=== PATIENT | female | born 1975 | race Two or more races ===

== ENCOUNTER 2017-08-09 10:02 | Outpatient (CLI) | payer OTHER ==
[~2017-08-09 10:02] MED LIST: ALTACE10 MG PO; ORPH100T PO; ULTRACET PO; ULTRAM50 MG PO
== END 2017-08-09 10:04 | disposition home or self-care (01) ==
LOC: RAD 10:02
DX: M12.9 Arthropathy, unspecified (principal); M19.90 Unspecified osteoarthritis, unspecified site

== ENCOUNTER 2017-11-12 10:17 | Outpatient (CLI) | payer OTHER | END 2017-11-12 20:51 | disposition home or self-care (01) | LOC: OBS/DEL 10:17 | DX: O43.892 Other placental disorders, second trimester (principal); O60.02 Preterm labor without delivery, second trimester; Z34.82 Encounter for supervision of other normal pregnancy, second trimester ==

== ENCOUNTER 2017-11-16 14:52 | Inpatient (IN) | payer OTHER ==
[~2017-11-16] VITALS: Ht 165.1 cm; Wt 118.8 kg
[2017-11-16] MEDS ORDERED: PRENATAL TABLE1 EAC1 PO (16:27)
[2017-11-16] MEDS ORDERED: ALDOMET500 MG PO (16:28)
[2017-11-16] MEDS ORDERED: VITAMIN D2400 UNIT PO (16:29)
[2017-11-16] MEDS ORDERED: NIFE60TA3 PO (16:30)
[2017-11-19] MEDS ORDERED: HYDROXYZINE PAM50 MG PO (12:11)
== END 2017-11-19 15:04 | DRG 781 ==
LOC: LDR 14:52 → OB/GYN 11-18 07:21
PROC: BY4CZZZ Ultrasonography of Second Trimester, Single Fetus (ICD-10-PCS; principal; 2017-11-16)
PROC: 4A1HXCZ Monitoring of Products of Conception, Cardiac Rate, External Approach (ICD-10-PCS; 2017-11-16)
DX: O14.02 Mild to moderate pre-eclampsia, second trimester (principal)

== ENCOUNTER 2018-02-07 10:12 | Inpatient (IN) | payer OTHER ==
[~2018-02-07] VITALS: Ht 165.1 cm; Wt 127.0 kg
[~2018-02-07 10:12] MED LIST changes: +ALDOMET500 MG PO; +HYDROXYZINE PAM50 MG PO; +NIFE60TA3 PO; +PRENATAL TABLE1 EAC1 PO; +VITAMIN D2400 UNIT PO
[2018-02-07] MEDS ORDERED: ALDOMET500 MG PO (11:26)
[2018-02-07] MEDS ORDERED: OBSTETRIX EC C1 EACH PO (11:27)
[2018-02-07] MEDS ORDERED: VITAMIN B COMP1 EACH PO (11:27)
== END 2018-02-10 09:54 | DRG 782 ==
LOC: LDR 10:12 → OB/GYN 02-08 11:44
PROC: BY4FZZZ Ultrasonography of Third Trimester, Single Fetus (ICD-10-PCS; principal; 2018-02-07)
PROC: 4A1HXCZ Monitoring of Products of Conception, Cardiac Rate, External Approach (ICD-10-PCS; 2018-02-07)
DX: O13.3 Gestational [pregnancy-induced] hypertension without significant proteinuria, third trimester (principal); O47.03 False labor before 37 completed weeks of gestation, third trimester; O09.523 Supervision of elderly multigravida, third trimester

== ENCOUNTER 2018-02-20 12:31 | Inpatient (IN) | payer OTHER ==
[~2018-02-20] VITALS: Ht 165.1 cm; Wt 3.6 kg
[~2018-02-20 12:31] MED LIST changes: +OBSTETRIX EC C1 EACH PO; +VITAMIN B COMP1 EACH PO
[2018-02-20] MEDS ORDERED: RETASIS (13:05)
[2018-02-20] MEDS ORDERED: PATANOL5 ML OP (13:06)
== END 2018-03-01 12:41 | disposition home or self-care (01) | DRG 766 ==
LOC: LDR 02-26 12:25 → OB/GYN 02-26 20:42 → SURH 03-08 12:29
PROC: 10D00Z1 Extraction of Products of Conception, Low, Open Approach (ICD-10-PCS; principal; 2018-02-27)
PROC: 0UL70ZZ Occlusion of Bilateral Fallopian Tubes, Open Approach (ICD-10-PCS; 2018-02-27)
PROC: 4A033R1 Measurement of Arterial Saturation, Peripheral, Percutaneous Approach (ICD-10-PCS; 2018-02-27)
PROC: 4A1HXCZ Monitoring of Products of Conception, Cardiac Rate, External Approach (ICD-10-PCS; 2018-02-27)
DX: O14.14 Severe pre-eclampsia complicating childbirth (principal); Z3A.37 37 weeks gestation of pregnancy; Z37.0 Single live birth; Z30.2 Encounter for sterilization

== ENCOUNTER 2018-03-05 11:13 | Outpatient (CLI) | payer OTHER ==
[~2018-03-05 11:13] MED LIST changes: +PATANOL5 ML OP; +RETASIS
[2018-03-06] MEDS ORDERED: LABETALOL HCL100 MG PO ×2 (07:49)
[2018-03-06] MEDS ORDERED: ALDOMET500 MG PO ×2 (07:49)
== END 2018-03-06 10:05 | disposition home or self-care (01) ==
LOC: OBS/DEL 11:13
DX: O14.93 Unspecified pre-eclampsia, third trimester (principal); Z34.83 Encounter for supervision of other normal pregnancy, third trimester

== ENCOUNTER 2018-03-06 13:35 | Inpatient (IN) | payer OTHER ==
[~2018-03-06] VITALS: Ht 165.1 cm; Wt 123.4 kg
[~2018-03-06 13:35] MED LIST changes: +LABETALOL HCL100 MG PO
== END 2018-03-08 10:36 | DRG 776 ==
LOC: LDR 13:35 → OB/GYN 03-07 08:11
DX: O13.5 Gestational [pregnancy-induced] hypertension without significant proteinuria, complicating the puerperium (principal)

== ENCOUNTER → 2018-03-10 | Emergency (ER) | payer OTHER | END | disposition left against medical advice (07) | LOC: ER 15:15 | DX: Z53.20 Procedure and treatment not carried out because of patient's decision for unspecified reasons (principal) ==

== ENCOUNTER 2019-01-20 13:14 | Emergency (ER) | payer OTHER ==
[~2019-01-20] VITALS: Ht 162.6 cm; Wt 112.5 kg
[2019-01-20] MEDS ORDERED: COZAAR100 MG (13:32)
== END 2019-01-21 05:26 | disposition home or self-care (01) ==
LOC: ER 13:14
DX: E87.6 Hypokalemia (principal); R20.0 Anesthesia of skin

== ENCOUNTER 2019-04-19 10:13 | Emergency (ER) | payer OTHER ==
[~2019-04-19] VITALS: Ht 162.6 cm; Wt 107.0 kg
[~2019-04-19 10:13] MED LIST changes: +COZAAR100 MG
[2019-04-19] MEDS ORDERED: AVALIDE 300-121 EACH (11:04)
== END 2019-04-19 12:17 ==
LOC: ER 10:13
DX: M54.42 Lumbago with sciatica, left side (principal)

== ENCOUNTER 2020-11-02 10:02 | Emergency (ER) | payer OTHER ==
[~2020-11-02] VITALS: Ht 165.1 cm; Wt 112.5 kg
[~2020-11-02 10:02] MED LIST changes: +AVALIDE 300-121 EACH
[2020-11-02] MEDS ORDERED: BUDESONIDE-FO10.2 G1 (10:13)
== END 2020-11-02 18:26 | disposition home or self-care (01) ==
LOC: ER 10:02
DX: R13.19 Other dysphagia (principal)

== ENCOUNTER 2020-12-05 15:16 | Emergency (ER) | payer OTHER ==
[~2020-12-05] VITALS: Ht 160 cm; Wt 108.9 kg
[~2020-12-05 15:16] MED LIST changes: +BUDESONIDE-FO10.2 G1
== END 2020-12-05 21:43 | disposition home or self-care (01) ==
LOC: ER 15:16
DX: R60.0 Localized edema (principal); R07.89 Other chest pain; M94.0 Chondrocostal junction syndrome [Tietze]; E87.6 Hypokalemia

== ENCOUNTER 2020-12-15 08:45 | Emergency (ER) | payer OTHER ==
[~2020-12-15] VITALS: Ht 165.1 cm; Wt 107.0 kg
[2020-12-15] MEDS ORDERED: ULTRACET (08:52)
[2020-12-15] MEDS ORDERED: VISTARIL50 MG PO (14:23)
[2020-12-15] MEDS ORDERED: CYCLOBENZAPRINE10 MG PO (14:23)
[2020-12-15] MEDS ORDERED: SKELAGESIC PO (14:23)
== END 2020-12-15 15:10 | disposition home or self-care (01) ==
LOC: ER 08:45 → CPU-OBS 09:17 → ER 09:17
DX: R07.89 Other chest pain (principal); Z11.52 Encounter for screening for COVID-19
CPT/HCPCS: G0378; G0379; 93005

== ENCOUNTER 2025-03-30 06:00 | Day surgery (SDC) | payer OTHER ==
[2025-03-26 10:31] LABS: URINE APPEARANCE Clear; URINE BILIRRUBIN Negative (NEGATIVE); URINE BLOOD Negative; URINE COLOR Yellow; URINE GLUCOSE Negative (NEGATIVE); URINE KETONE Negative (NEGATIVE); URINE LEUKOCYTE Negative; URINE NITRATE Negative; URINE PROTEIN Negative (NEGATIVE); URINE UROBILINOGEN 0.2 E.U./dl
[2025-03-26 10:31] LABS: BASO % 0.7 % (0.1-1.2); EOS # 0.18 (0.04-0.54); EOS % 2.1 % (0.7-7.0); LYMPH # 2.88 (1.18-3.74); LYMPH % 33.0 % (19.3-53.1); MEAN PLATELET VOLUME 9.20 fl (9.4-12.4); MONO # 0.64 (0.24-0.82); MONO % 7.3 % (4.7-12.5); NEUT # 4.96 (1.56-6.13); NEUT % 56.7 % (34.0-71.1); RED CELL DISTRIBUTION WIDTH 12.6 % (11.6-14.4)
[2025-03-26 10:35] LABS: URINE BACTERIA 170.3 uL (0.0-1933); URINE EPITHELIAL CELLS 8.1 uL (0.0-38.8)
[2025-03-26 10:56] LABS: URINE CAST 0.00 uL (0.0-1.40); URINE RBC 1.7 uL (0.0-20.8); URINE WBC 1.0 uL (0.0-23.2)
[2025-03-26 11:09] LABS: INR 1.08
[2025-03-26 11:12] LABS: ALT/SGPT 33.0 U/L (12-78); AST/SGOT 24.0 U/L (15-37); BILIRUBIN TOTAL 0.56 mg/dL (0.3-1.2); BUN CREA RATIO 19.0 (7.0-25.0); CREATININE SERUM 0.53 mg/dL (0.55-1.02); GFR 123.12; GLOBULINA 4.2 G/DL (2.4-3.5); GLUCOSE FASTING 99.0 mg/dL (65-100); OSMOLALITY SERUM 278.0 MOSM/KG (275-295)
[2025-03-26 13:43] VITALS: BP 140/90
[~2025-03-30] VITALS: Ht 165.1 cm; Wt 117.0 kg
[~2025-03-30 06:00] MED LIST changes: +CYCLOBENZAPRINE10 MG PO; +HYDROCHLOROTHIA25 MG PO; +LORADAMED10 MG PO; +PATANOL; +RESTASIS1 EACH OP; +SKELAGESIC PO; +ULTRACET; +VISTARIL50 MG PO
[2025-03-30] MEDS ORDERED: POVIDONE-IODINE 118 ML BOTT TOP ONE (08:00)
[2025-03-30] MEDS ORDERED: CHLORHEXIDINE GLUCONATE 120 ML BOTTLE TOP ONE (08:00)
[2025-03-30] MEDS ORDERED: MORPHINE SULFATE 4 MG/ML VIAL IV ONE (08:30)
[2025-03-30] MEDS ORDERED: ONDANSETRON HCL 2 MG/ML VIAL IV ONE (08:30)
== END 2025-03-30 12:10 | disposition home or self-care (01) ==
LOC: CIR.AMB 06:00
PROVIDERS: ATTEND Obstetrics & Gynecology
DX: N84.0 Polyp of corpus uteri (principal); N93.8 Other specified abnormal uterine and vaginal bleeding; Z88.6 Allergy status to analgesic agent; Z91.013 Allergy to seafood